=== PATIENT | female | born 1955 | race Caucasian/White ===

== ENCOUNTER → 2018-09-22 10:19 | Outpatient (CLI) | payer OTHER, SELFPAY ==
[2018-09-22 11:32] LABS: Alanine Aminotransferase 30 IU/L (9-52); Albumin 4.4 g/dL (3.5-5.0); Albumin Globulin Ratio 1.4 (1.0-2.8); Alkaline Phosphatase 74 U/L (38-126); Aspartate Aminotransferase 23 IU/L (14-36); BUN Creatinine Ratio 17.5 (6-22); Bilirubin Total 0.3 mg/dL (0.2-1.3); Blood Urea Nitrogen 14 mg/dL (7-17); Calcium 9.7 mg/dL (8.4-10.2); Carbon Dioxide 31 mmol/L (22-32); Chloride 102 mmol/L (98-107); Estimated Glomerular Filt Rate > 60.0 mL/min (>60); Globulin 3.2 g/dL (1.7-4.1); Glucose 75 mg/dL (80-110); HEMOLYSIS < 15 (0-50); Potassium 4.1 mmol/L (3.4-5.1); Sodium 141 mmol/L (137-145); Total Protein 7.6 g/dL (6.3-8.2)
[2018-09-22 11:41] LABS: Add Manual Diff / Slide Review NO; Basophils Absolute Auto 100 /uL (0-100); Basophils Percent Auto 1.3 % (0-2); Eosinophils Absolute Auto 200 /uL (0-450); Eosinophils Percent Auto 2.8 % (2-4); Hematocrit 44.3 % (36-46); Hemoglobin 14.9 g/dL (12.0-16.0); Lymphocytes Absolute Auto 2000 /uL (1100-4500); Lymphocytes Percent Auto 30.8 % (25-40); Mean Corpuscular HGB Conc 33.7 % (30-36); Mean Corpuscular Hemoglobin 29.6 PG (26-34); Mean Corpuscular Volume 87.9 fL (80-100); Monocytes Absolute Auto 500 /uL (0-900); Monocytes Percent Auto 7.7 % (3-14); Neutrophils Absolute Auto 3800 /uL (1500-7000); Neutrophils Percent Auto 57.4 % (50-75); Platelet Count 257 X10^3/uL (150-400); Red Blood Cell Count 5.04 X10^6/uL (4.0-5.2); Red Cell Distribution Width 12.9 % (11.6-14.8); White Blood Cell Count 6.6 X10^3/uL (4.5-11.0)
[2018-09-22 11:46] LABS: Free T3, Triiodothyronine Free 4.41 pg/mL (2.77-5.27); Free T4, Direct Thyroxine 1.98 ng/dL (0.78-2.19)
[2018-09-22 12:00] LABS: Thyroid Stimulating Hormone < 0.02 uIU/mL (0.47-4.68)
== END ==
PROVIDERS: Family Provider Internal Medicine; PCP Internal Medicine; Visit Provider Internal Medicine
DX: E78.00 Pure hypercholesterolemia, unspecified (principal); M15.0 Primary generalized (osteo)arthritis; E03.9 Hypothyroidism, unspecified
CPT/HCPCS: 36415; 80053; 84439; 84443; 84481; 85025

== ENCOUNTER → 2018-09-28 15:52 | Outpatient (CLI) | payer OTHER, SELFPAY ==
--- NOTE | 2018-09-28 | DI.MRI.S_ITS ---
PROCEDURE: MR CERVICAL SPINE WO CON INDICATIONS: SPINAL STENOSIS TECHNIQUE: Noncontrast sagittal T1 spin echo and T2 fast spin echo, sagittal STIR, foraminal oblique sagittal T2 fast spin echo, and axial gradient echo or T2 fast spin echo through the cervical spine. COMPARISON: [facility], MR, C-SPINE WITHOUT CONTRAST, 05/08/2016, 10:42. [facility], CR, CERVICAL SPINE 2 OR 3 VIEWS, 05/10/2015, 11:19. FINDINGS: Image quality: Excellent. Alignment and Curvature: There is straightening of the normal cervical lordosis. Bone Marrow: Marrow demonstrates normal overall signal. Spinal Cord: Visualized spinal cord has normal size and signal. No cerebellar tonsillar herniation. Paraspinous Soft Tissues: No paravertebral masses. Prevertebral soft tissues are normal in thickness. C2-C3: No significant abnormality is seen. C3-C4: The disc height is well-preserved. Loss of disc signal is seen at this level. Mild disc osteophyte complex is seen, with a central/right disc osteophyte protrusion seen. There is mild left-sided and no significant right-sided neural foraminal narrowing. Minimal to mild central canal narrowing is seen. When comparison is made with the prior examination, these findings are similar. C4-C5: Mild loss of disc height is seen. Loss of disc signal is seen. Moderate to prominent disc osteophyte complex is seen. Uncovertebral joint hypertrophy is seen at this level. Moderate facet hypertrophy is seen, left worse than right. Moderate to severe bilateral neural foraminal narrowing is seen. Moderate central canal narrowing is seen, with mass effect upon the ventral spinal cord. These degenerative changes are mildly progressed compared to 2016. C5-C6: At least moderate loss of disc height is seen. There is loss of disc signal. Moderate disc osteophyte complex is seen, which is eccentric to the left. Moderate bilateral neural foraminal narrowing is seen. Moderate central canal narrowing is seen, with mild mass effect upon the ventral spinal cord. These imaging findings have progressed compared to the prior study. C6-C7: Moderate loss of disc height is seen. Loss of disc signal is seen. Moderate disc osteophyte complex is seen, which is eccentric to the left. There is moderate left-sided and mild right-sided neural foraminal narrowing seen. Mild to moderate central canal narrowing is seen. These imaging findings have progressed compared to the prior study. C7-T1: The disc height is well-preserved. Loss of disc signal is seen at this level. A mild degree of generalized disc osteophyte complex is seen. No significant neural foraminal or central canal narrowing can be seen. When comparison is made with the prior examination, these findings are similar. IMPRESSION: Multiple levels of cervical spine degenerative change are seen, which have progressed at C4-C5, C5-C6, and C6-C7 compared to 2016. Dictated by: Ehsan Fishman M.D. on 09/28/2018 at 16:43 Approved by: Ehsan Fishman M.D. on 09/28/2018 at 16:48
== END ==
PROVIDERS: Family Provider Internal Medicine; PCP Internal Medicine; Visit Provider Internal Medicine
DX: M48.02 Spinal stenosis, cervical region (principal); M47.812 Spondylosis without myelopathy or radiculopathy, cervical region
CPT/HCPCS: 72141

== ENCOUNTER → 2019-04-20 10:21 | Outpatient (CLI) | payer OTHER, SELFPAY ==
[2019-04-20 11:47] LABS: Free T3, Triiodothyronine Free 3.95 pg/mL (2.77-5.27); Free T4, Direct Thyroxine 1.86 ng/dL (0.78-2.19)
[2019-04-20 12:00] LABS: Thyroid Stimulating Hormone < 0.02 uIU/mL (0.47-4.68)
== END ==
PROVIDERS: PCP Internal Medicine; Visit Provider Internal Medicine
DX: E03.9 Hypothyroidism, unspecified (principal)
CPT/HCPCS: 36415; 84439; 84443; 84481

== ENCOUNTER → 2020-12-04 11:22 | Outpatient (CLI) | payer OTHER, SELFPAY ==
[2020-12-04 13:15] LABS: Alanine Aminotransferase 26 IU/L (<35); Albumin 4.4 g/dL (3.5-5.0); Albumin Globulin Ratio 1.3 (1.0-2.8); Alkaline Phosphatase 88 U/L (38-126); Aspartate Aminotransferase 31 IU/L (14-36); BUN Creatinine Ratio 19.5 (6-22); Bilirubin Total 0.2 mg/dL (0.2-1.3); Blood Urea Nitrogen 15 mg/dL (7-17); Calcium 9.8 mg/dL (8.4-10.2); Carbon Dioxide 27 mmol/L (22-32); Chloride 103 mmol/L (98-107); Cholesterol 138 mg/dL (140-199); Estimated Glomerular Filt Rate > 60.0 mL/min (>60); Globulin 3.3 g/dL (1.7-4.1); Glucose 94 mg/dL (80-110); HDL Cholesterol 46 mg/dL (40-60); HEMOLYSIS < 15 (0-50); LDL Cholesterol Calculated 57 mg/dL (<100); Potassium 3.5 mmol/L (3.4-5.1); Sodium 138 mmol/L (137-145); Total Protein 7.7 g/dL (6.3-8.2); Triglycerides 175 mg/dL (35-150)
[2020-12-04 14:23] LABS: TSH w/ Reflex to FT4 < 0.02 uIU/mL (0.47-4.68)
== END ==
PROVIDERS: PCP Internal Medicine; Referring Provider Internal Medicine; Visit Provider Internal Medicine
DX: E78.2 Mixed hyperlipidemia (principal); E03.9 Hypothyroidism, unspecified; M15.0 Primary generalized (osteo)arthritis
CPT/HCPCS: 36415; 80053; 80061; 84443

== ENCOUNTER 2024-09-13 07:43 | Day surgery (SDC) | payer OTHER, SELFPAY ==
--- NOTE | 2024-09-13 | PATH_ITS ---
[facility] Accession Number: [id number] No. of containers..03 Tissue . 01 Material submitted: . PART A: stomach - ANTRUM PART B: sigmoid colon - SIGMOID POLYP PART C: rectum - RECTAL POLYPS . 01 Diagnosis: Part A: ANTRUM: Gastric mucosa with mild chronic inflammation and features of reactive gastropathy. No Helicobacter organisms identified. No intestinal metaplasia, dysplasia, or malignancy identified. . Part B: SIGMOID POLYP: Hyperplastic polyp. . Part C: RECTAL POLYPS : Hyperplastic polyps. [facility] 09/14/20241901 Local . 01 Electronically signed: . Evans Zamarripa MD, Pathologist NPI- [id number] . 01 Gross description: . Part A: ANTRUM: Received in formalin are 2 fragment(s) of rodrigues, soft tissue measuring 0.1 x 0.1 x 0.1 cm to 0.3 x 0.2 x 0.2 cm submitted entirely in 1 cassette(s) . Part B: SIGMOID POLYP: Received in formalin are 2 fragment(s) of rodrigues, soft tissue measuring 0.3 x 0.3 x 0.2 cm to 0.8 x 0.7 x 0.3 cm submitted entirely in 1 cassette(s) . Part C: RECTAL POLYPS : Received in formalin are 2 fragment(s) of rodrigues, soft tissue measuring 0.4 x 0.4 x 0.2 cm to 1.4 x 0.2 x 0.2 cm submitted entirely in 1 cassette(s) /[facility] 09/14/20241901 Local . 01 Microscopic: . Part A: ANTRUM: An immunohistochemical stain was performed to evaluate for Helicobacter organisms and is negative. The control stains appropriately. * This test was developed and the performance characteristics were validated by [employer]. It has not been cleared or approved by the Food and Drug Administration. . 01 Pathologist provided ICD-10: K29.60, K62.1, K63.5 . 01 CPT . 266054, 243580, 537416, [id number] Specimen Comment: A courtesy copy of this report has been sent to [facility]ology Performed at: [address] [id number] MD Evans Zamarripa MD Phone: [phone]
[2024-09-13 08:18] VITALS: BP 113/69; PULSE 90; RESP 18; TEMP 36.6; O2SAT 97
[2024-09-13] MEDS: SODIUM CHLORIDE 0.9% 1,000 ML 84 ML IV (08:49)
--- NOTE | 2024-09-13 08:56 | PM.PREOP ---
Pre-operative Note COVID-19 COVID-19 status: Not tested Interval Note History & Physical reviewed/Exam performed by Physician: Yes Changes to H&P: No
--- NOTE | 2024-09-13 09:39 | PM.OP.EC ---
Operative Date/Time/Diagnoses Date of procedure: 09/13/24 Time of procedure: 09:39 Pre-op diagnosis: Abdominal pain, reflux, colon screening Post-op diagnosis: same (Sigmoid polyp, rectal polyp) Procedure & Clinicians Study performed: EGD with biopsy Colonoscopy with cold snare polypectomy Same procedure as scheduled: Yes Indications: Abdominal pain, reflux, colon screening Surgeon: Mirza Castaneda Procedure Notes SCOAP/Timeout: Performed Procedure in detail: Time-out was performed. Mac was induced. Patient was placed in left lateral decubitus position. Bite block was placed. Gastroscope was inserted to the 2nd portion of the duodenal. There was evidence of bile reflux gastritis. Biopsies were taken of the antrum with cold forceps. The antrum showed erythema and linear erosions. Retroflexed view shows small hiatal hernia. Z-line was normal at 40 cm. The endoscope was withdrawn attention was turned to the colonoscopy. The perineum was inspected without any gross abnormality. Lubricated pediatric colonoscope was inserted and advanced to the cecum. The terminal ileum was intubated. The colonoscope was withdrawn slowly inspecting the circumference of the colon. Patient had polyps of the sigmoid and rectum, rectal polyps suspected to be hyperplastic, removed with cold snare polypectomy. Very small polyps may have been missed, prep quality was adequate. Retroflexed view of the rectum showed small, non prolapsed nonbleeding internal hemorrhoids. The scope was withdrawn the patient was taken to PACU in good condition. Scope withdrawal time: 10 Sedation minutes: 20 Findings: diverticulosis, gastritis, internal hemorrhoids and polyp Specimen(s): other (1. Antrum2. Sigmoid polyp3. Rectal polyp) Complications: none Impression: Bile reflux gastritis, polyps Post-procedure Recommendations: Colonscopy in 5 years and Start medication(s) (Proton pump inhibitor) Follow up: as needed Disposition: PACU
[2024-09-13 09:44] VITALS: BP 123/83; PULSE 92; RESP 16; TEMP 36.1; O2SAT 97
[2024-09-13 09:49] VITALS: BP 102/62; PULSE 86; RESP 20; TEMP 36.1; O2SAT 98
[2024-09-13 09:54] VITALS: BP 109/70; PULSE 88; RESP 17; O2SAT 97
[2024-09-13 10:01] VITALS: BP 115/74; PULSE 87; RESP 16; TEMP 36.1; O2SAT 97
== END 2024-09-13 10:30 | disposition home or self-care (01) ==
PROVIDERS: PCP Internal Medicine; Referring Provider Surgery; Visit Provider Surgery
PROC: 0DJ08ZZ Inspection of Upper Intestinal Tract, Via Natural or Artificial Opening Endoscopic (ICD-10-PCS; CPT 45385; principal; 2024-09-13 08:45)
PROC: 0DJD8ZZ Inspection of Lower Intestinal Tract, Via Natural or Artificial Opening Endoscopic (ICD-10-PCS; CPT 45378; 2024-09-13 08:45)
DX: R10.9 Unspecified abdominal pain (principal); K21.9 Gastro-esophageal reflux disease without esophagitis; K46.9 Unspecified abdominal hernia without obstruction or gangrene; K57.30 Diverticulosis of large intestine without perforation or abscess without bleeding; K64.8 Other hemorrhoids; K63.5 Polyp of colon; K29.50 Unspecified chronic gastritis without bleeding; K62.1 Rectal polyp
CPT/HCPCS: 45385; 43239; J2704